=== PATIENT | male | born 1970 | race Caucasian/White ===

== ENCOUNTER 2023-11-28 18:29 | Emergency (ER) | payer OTHER ==
[2023-11-28] MEDS: Diphtheria,Pertussis(Acell),Tetanus Vaccine 0.5 ML Syringe IM ONE (19:22)
[2023-11-28] MEDS: Lidocaine 1% PF 2 ML SDV INJECT ONE (19:22)
[2023-11-28] MEDS: Lidocaine 1% 5 ML VIAL INJECT ONE (19:22)
== END 2023-11-28 20:54 | disposition home or self-care (01) ==
LOC: MW.ED 18:29
DX: S61.215A Laceration without foreign body of left ring finger without damage to nail, initial encounter (principal); F17.210 Nicotine dependence, cigarettes, uncomplicated; Z23 Encounter for immunization; Z75.8 Other problems related to medical facilities and other health care; W26.8XXA Contact with other sharp object(s), not elsewhere classified, initial encounter
CPT/HCPCS: 12001; 73140-26-F3; 73140-F3; 90471; 90715; 99283; 99283-25; J3490